=== PATIENT | female | born 1970 | race Caucasian/White ===

== ENCOUNTER 2019-03-30 14:29 | Outpatient (CLI) | payer MEDICAID | END 2019-03-30 14:30 | disposition EMS.NT | LOC: EMS 14:29 | PROVIDERS: ATTEND Surgery | DX: Z03.89 Encounter for observation for other suspected diseases and conditions ruled out (principal) ==

== ENCOUNTER 2019-04-01 01:47 | Outpatient (CLI) | payer MEDICAID | END 2019-04-01 01:48 | disposition short-term general hospital (02) | LOC: EMS 01:47 | PROVIDERS: ATTEND Surgery | DX: R11.10 Vomiting, unspecified (principal) | CPT/HCPCS: A0425; A0427; A0999 ==